=== PATIENT | female | born 1980 ===

== ENCOUNTER 2018-07-13 10:45 | Emergency (ER) | payer MEDICAID ==
[2018-07-13 11:03] VITALS: TEMP 98.5; BMI 21.9
[2018-07-13 11:52] LABS: BASO # 0.1 K/uL (0.0-0.2); BASO % 0.6 % (0.0-2.0); EOS # 0.1 K/uL (0.0-0.7); EOS % 0.6 % (0.0-4.0); HEMOGLOBIN 12.2 g/dL (12.0-16.0); LYMPH # 1.2 K/uL (1.0-4.3); LYMPH % 8.9 % (20.0-40.0); MEAN CELL VOLUME 95.6 fl (81.0-99.0); MEAN CORPUSCULAR HEMOGLOBIN 31.6 pg (27.0-31.0); MEAN CORPUSCULAR HGB CONC 33.1 g/dL (33.0-37.0); MEAN PLATELET VOLUME 9.9 fl (7.2-11.7); MONO # 1.1 K/uL (0.0-0.8); MONO % 7.7 % (0.0-10.0); NEUT # 11.4 K/uL (1.8-7.0); NEUT % 82.2 % (50.0-75.0); NRBC % 0.1 % (0.0-0.0); PLATELET COUNT 154 K/uL (130-400); RBC 3.86 Mil/uL (3.80-5.20); RED CELL DISTRIBUTION WIDTH 14.3 % (11.5-14.5); WHITE BLOOD COUNT 13.9 K/uL (4.8-10.8)
[2018-07-13 12:02] LABS: ALB/GLOB RATIO 1.1 (1.0-2.1); ALBUMIN 3.6 g/dL (3.5-5.0); ALT/SGPT 29 U/L (9-52); AST/SGOT 37 U/L (14-36); BLOOD UREA NITROGEN 7 mg/dl (7-17); CALCIUM 8.6 mg/dL (8.4-10.2); GFR NON-AFRICAN AMERICAN > 60
--- NOTE | 2018-07-13 12:03 | ED PDOC ---
HPI: Fever Time Seen by Provider: 07/13/18 11:45 Fever Onset Was: 07/10/18 The Fever Was Measured: Tympanic What Antipyretic Given Prior To Arrival: Acetaminophen (0800) Recent Sick Contacts: No Have you had recent travel within the past 21 days to any of the following countries: [place], [place], [place] or [place]?: No Does Patient Have Hx Of Febrile Seizures: No Did The Patient Have A Seizure Today: No Symptoms Associated With Fever: Other (Sore throat) Additional Comments: Pt seen and examined at bedside with attending. 37F PMH HSV asymptomatic on prophylaxis p/w 3 days of fever, Tmax-104, being treated wi th Tylenol and Ibuprofen. She denies sick contacts, ear pain, SOB, cough, palpitations, mild Nausea but denies Vomiting/diarrhea, but mild sore throat started today and experiencing some mild dysuric symptoms with cramping. Past Medical History Vital Signs: Last Vital Signs Temp 36.9 C 07/13/18 11:02 Pulse 88 07/13/18 11:02 Resp 16 07/13/18 11:02 BP 114/78 07/13/18 11:02 Pulse Ox 98 07/13/18 11:02 - Medical History PMH: Sexually Transmitted Disease (Herpes) Denies: Chronic Kidney Disease - Surgical History Surgical History: Cholecystectomy (2008) - Family History Family History: States: Unknown Family Hx - Immunization History Hx Tetanus Toxoid Vaccination: No Hx Influenza Vaccination: No Hx Pneumococcal Vaccination: No - Home Medications Home Medications: Ambulatory Orders Medication Instructions Recorded Docusate [Colace] 100 mg PO BID #30 cap 03/16/16 Hydrocortisone/Lidocaine/Aloe 1 applic TOP BID #1 kit 03/16/16 [Lidocaine-Hc 2-2% Cream Kit] traMADol [Ultram] 50 mg PO Q8 PRN #10 tab 03/16/16 Acyclovir [Zovirax] 500 mg PO DAILY 05/10/16 Docusate [Colace] 100 mg PO BID 05/10/16 oxyCODONE/Acetaminophen [Percocet 5 - 325 mg PO Q4 PRN 05/10/16 5/325 mg Tab] Ciprofloxacin [Cipro] 500 mg PO BID #14 tab 07/13/18 - Allergies Allergies/Adverse Reactions: Allergies Allergy/AdvReac Type Severity Reaction Status Date / Time No Known Allergies Allergy Verified 03/15/16 23:46 Review of Systems ROS Statement: Except As Marked, All Systems Reviewed And Found Negative Constitutional: Positive for: Fever, Chills Gastrointestinal: Positive for: Nausea. Negative for: Vomiting, Abdominal Pain Genitourinary Female: Positive for: Dysuria Physical Exam - Reviewed Vital Signs Reviewed: Yes - Physical Exam Appears: Positive for: Non-toxic, No Acute Distress Skin: Positive for: Normal Color, Warm, Dry Eye Exam: Positive for: Normal appearance ENT: Positive for: Pharyngeal Erythema Neck: Positive for: Supple Cardiovascular/Chest: Positive for: Regular Rate, Rhythm. Negative for: Murmur Respiratory: Positive for: Normal Breath Sounds. Negative for: Crackles, Wheezing Back: Positive for: R CVA Tenderness (mild) Extremity: Positive for: Normal ROM. Negative for: Swelling Lymphatic: Negative for: Adenopathy Neurologic/Psych: Positive for: Alert, Oriented - Laboratory Results Result Diagrams: 07/13/18 11:42 07/13/18 11:42 - ECG O2 Sat by Pulse Oximetry: 98 Medical Decision Making Medical Decision Making: Urine dip with blood/trace leuks not menstruating, Upreg negative. - Udip/U preg, CBC, CMP, Rapid Flu, Urinalysis - Reeval Urine dip shows blood+, Upreg negative CBC no anemia but leukocytosis with left shift CMP mild AST elevation, otherwise WNL Urinalysis blood/RBC positive - Rocephin/Toradol - Reeval Disposition - Clinical Impression Clinical Impression: Kidney infection - Patient ED Disposition Is Patient to be Admitted: No Counseled Patient/Family Regarding: Diagnosis, Need For Followup, Rx Given - Disposition Referrals: Bryant Parada MD [Family Provider] - (3-5 days) Disposition: Routine/Home Disposition Time: 14:28 Condition: IMPROVED Additional Instructions: Follow up with primary care doctor in 2-3 days Complete and take antibiotics as directed Return to the ER for worsening or persistent fevers or the development of vomiting Prescriptions: Ciprofloxacin [Cipro] 500 mg PO BID #14 tab Instructions: Kidney Infection (DC) Forms: [employer] (Khmer), [facility] ED School/Work Excuse
[2018-07-13 12:04] LABS: SQUAMOUS EPITHIAL 13 /hpf (0-5); URINE BACTERIA RARE (<OCC); URINE BILIRUBIN NEGATIVE (NEGATIVE); URINE BLOOD MODERATE (NEGATIVE); URINE CLARITY SLIGHTY-CLOUDY (Clear); URINE COLOR YELLOW (YELLOW); URINE GLUCOSE (UA) NEG (Normal); URINE LEUKOCYTE ESTERASE NEG Leu/uL (Negative); URINE PROTEIN 30 mg/dL (NEGATIVE)
[2018-07-13 12:48] LABS: BANDS 3 % (0-2); BASOPHIL 1 % (0-2); EOSINOPHIL 1 % (0-7); LYMPHOCYTE 4 % (20-50); MONOCYTE 6 % (0-10); NEUTROPHIL 85 % (42-75); PLATELET ESTIMATE NORMAL (NORMAL); TOTAL CELLS COUNTED 100
[2018-07-13] MEDS ORDERED: cefTRIAXone (Rocephin) 1 gm Inj ONE (13:33)
[2018-07-13 17:40] VITALS: BP 111/70; PULSE 74; RESP 16; O2SAT 99
== END 2018-07-13 14:40 | disposition home or self-care (01) ==
LOC: H.ER 10:45
DX: N10 Acute pyelonephritis (principal)
CPT/HCPCS: 80053; 81003; 81025; 85025; 87804; 96365; 96372; 99282; J0696; J1885

== ENCOUNTER 2018-11-28 00:26 | Emergency (ER) | payer MEDICAID ==
[2018-11-28 01:06] VITALS: BMI 23.2
[2018-11-28 01:08] VITALS: RESP 18
[2018-11-28] MEDS ORDERED: Iohexol 240 (50 ml) PO ONE (03:09)
--- NOTE | 2018-11-28 03:11 | ED PDOC ---
HPI: Abdomen Time Seen by Provider: 11/28/18 00:40 Chief Complaint (Nursing): Abdominal Pain Chief Complaint (Provider): abd pain, diffuse History Per: Patient History/Exam Limitations: no limitations Onset/Duration Of Symptoms: Days (1) Additional Complaint(s): pt complains of fever since tuesday and diarrhea today. pt complains of nausea but no vomiting. pt denies fever or chills. Past Medical History Vital Signs: Last Vital Signs Temp 98.8 F 11/28/18 01:06 Pulse 72 11/28/18 01:06 Resp 18 11/28/18 01:06 BP 105/69 11/28/18 01:06 Pulse Ox 98 11/28/18 01:06 - Medical History PMH: No Chronic Diseases, Sexually Transmitted Disease (Herpes) Denies: Chronic Kidney Disease - Surgical History Surgical History: Cholecystectomy (2008) - Family History Family History: States: Unknown Family Hx - Social History Current smoker - smoking cessation education provided: No Alcohol: None Drugs: Denies - Immunization History Hx Tetanus Toxoid Vaccination: No Hx Influenza Vaccination: No Hx Pneumococcal Vaccination: No - Home Medications Home Medications: Ambulatory Orders Medication Instructions Recorded Docusate [Colace] 100 mg PO BID #30 cap 03/16/16 Hydrocortisone/Lidocaine/Aloe 1 applic TOP BID #1 kit 03/16/16 [Lidocaine-Hc 2-2% Cream Kit] traMADol [Ultram] 50 mg PO Q8 PRN #10 tab 03/16/16 Acyclovir [Zovirax] 500 mg PO DAILY 05/10/16 Docusate [Colace] 100 mg PO BID 05/10/16 oxyCODONE/Acetaminophen [Percocet 5 - 325 mg PO Q4 PRN 05/10/16 5/325 mg Tab] Ciprofloxacin [Cipro] 500 mg PO BID #14 tab 07/13/18 Ciprofloxacin HCl [Cipro] 500 mg PO BID #20 tab 11/28/18 Metronidazole [Flagyl] 500 mg PO TID #30 tablet 11/28/18 - Allergies Allergies/Adverse Reactions: Allergies Allergy/AdvReac Type Severity Reaction Status Date / Time No Known Allergies Allergy Verified 11/28/18 01:06 Physical Exam - Reviewed Nursing Documentation Reviewed: Yes Vital Signs Reviewed: Yes - Physical Exam Appears: Positive for: Well, Non-toxic, No Acute Distress Head Exam: Positive for: ATRAUMATIC, NORMAL INSPECTION, NORMOCEPHALIC Skin: Positive for: Normal Color, Warm, DRY Eye Exam: Positive for: EOMI, Normal appearance, PERRL ENT: Positive for: Normal ENT Inspection Neck: Positive for: Normal, Painless ROM Cardiovascular/Chest: Positive for: Regular Rate, Rhythm Respiratory: Positive for: CNT, Normal Breath Sounds Gastrointestinal/Abdominal: Positive for: Normal Exam, Bowel Sounds, Soft, Tenderness (diffuse). Negative for: Guarding, Rebound Back: Positive for: Normal Inspection Extremity: Positive for: Normal ROM Neurological/Psych: Positive for: Awake, Alert, Normal Tone - Laboratory Results Result Diagrams: 11/28/18 03:55 11/28/18 03:55 - ECG O2 Sat by Pulse Oximetry: 98 Medical Decision Making Medical Decision Making: diarrhea for one day, fever -CT ap rule out coliits, diverticulitis, abscess rule out colitis labs reviewed CT ap" IMPRESSION: Uncomplicated colitis. Moderate diffuse thickening of the cecum, ascending and proximal transverse colon. Moderate amount of fecal residue in the distal colon. 630 am pt reevaluated, feels improved, tolerated po, pain improved pt stable for discharge as an outpatient Disposition - Clinical Impression Clinical Impression: Abdominal pain, Colitis - Patient ED Disposition Is Patient to be Admitted: No Counseled Patient/Family Regarding: Studies Performed, Diagnosis, Need For Followup - Disposition Referrals: Jermain Alvarez MD, PhD [Staff Provider] - Bryant Parada MD [Primary Care Provider] - Disposition: Routine/Home Disposition Time: 06:30 Condition: IMPROVED Additional Instructions: follow up with your primary doctor in 2 days for reevaluation and for referral to GI specialist or follow up with our head control clerk Gi doctor return to the ED wtih any worsening or concerning symptoms Prescriptions: Ciprofloxacin HCl [Cipro] 500 mg PO BID #20 tab Metronidazole [Flagyl] 500 mg PO TID #30 tablet Instructions: Colitis, Stomach Ache and Stomach Upset Forms: [employer] (Turkish), [facility] ED School/Work Excuse
[2018-11-28] MEDS ORDERED: Iohexol 240 (50 ml) ONE (03:43)
[2018-11-28 04:14] LABS: ALB/GLOB RATIO 1.3 (1.0-2.1); ALBUMIN 3.9 g/dL (3.5-5.0); ALT/SGPT 24 U/L (9-52); AST/SGOT 28 U/L (14-36); BLOOD UREA NITROGEN 9 mg/dl (7-17); CALCIUM 8.9 mg/dL (8.4-10.2); GFR NON-AFRICAN AMERICAN > 60
[2018-11-28 04:31] LABS: BASO # 0.1 K/uL (0.0-0.2); BASO % 0.8 % (0.0-2.0); EOS # 0.1 K/uL (0.0-0.7); EOS % 1.1 % (0.0-4.0); HEMOGLOBIN 13.4 g/dL (12.0-16.0); LYMPH # 1.4 K/uL (1.0-4.3); LYMPH % 17.6 % (20.0-40.0); MEAN CELL VOLUME 94.7 fl (81.0-99.0); MEAN CORPUSCULAR HEMOGLOBIN 32.8 pg (27.0-31.0); MEAN CORPUSCULAR HGB CONC 34.6 g/dL (33.0-37.0); MEAN PLATELET VOLUME 10.2 fl (7.2-11.7); MONO # 0.7 K/uL (0.0-0.8); NEUT # 5.9 K/uL (1.8-7.0); NEUT % 72.5 % (50.0-75.0); NRBC % 0.1 % (0.0-0.0); RBC 4.08 Mil/uL (3.80-5.20); RED CELL DISTRIBUTION WIDTH 13.8 % (11.5-14.5); WHITE BLOOD COUNT 8.2 K/uL (4.8-10.8)
[2018-11-28] MEDS ORDERED: Sodium Chloride 0.9% 50 ML IV ONE (05:16)
[2018-11-28] MEDS ORDERED: Iohexol 300 100 ML IJ ONE (05:16)
[2018-11-28 07:33] VITALS: BP 120/75; PULSE 75; TEMP 98.3
--- NOTE | 2018-11-28 11:10 | CT ---
Date of service: 11/28/2018 PROCEDURE: CT Abdomen and Pelvis with contrast HISTORY: ab dpain COMPARISON: None. TECHNIQUE: Following the intravenous administration of iodinated contrast material, a CT examination of the abdomen and pelvis was performed from the domes of the diaphragms to the symphysis pubis with reformatted datasets provided in axial, sagittal and coronal planes. Oral contrast was not administered as per referring physician request. Contrast dose: Omnipaque 300, 80 cc Radiation dose: Total exam DLP = 234.53 mGy-cm. This CT exam was performed using one or more of the following dose reduction techniques: Automated exposure control, adjustment of the mA and/or kV according to patient size, and/or use of iterative reconstruction technique. FINDINGS: LOWER THORAX: Trace bilateral basilar dependent atelectasis identified. LIVER: Unremarkable. No gross lesion or ductal dilatation. GALLBLADDER AND BILE DUCTS: Prior cholecystectomy. Likely related dilated CBD measuring 8 mm proximally and 9.5 mm at the mid segment with the distal caliber normal, under 4 mm. No radiodense choledocholithiasis appreciable. PANCREAS: Unremarkable. No gross lesion or ductal dilatation. SPLEEN: Unremarkable. ADRENALS: Unremarkable. No mass. KIDNEYS AND URETERS: Unremarkable. No hydronephrosis. No solid mass. VASCULATURE: Unremarkable. No aortic aneurysm. No aortic atherosclerotic calcification or mural plaque present. BOWEL: Evaluation of the gastrointestinal tract is limited due to the lack of oral contrast administration. No bowel obstruction appreciable. Prominent fecal loading is seen at the left hemicolon with the ascending and hepatic flexure colonic segments collapsed but thick-walled suspicious for segmental colitis from indeterminate etiology. Consider infectious or inflammatory causes with neoplasm not favored but not completely excluded. APPENDIX: No CT evidence of appendicitis. PERITONEUM: No abscess, free air or ascites grossly evident. LYMPH NODES: Unremarkable. No enlarged lymph nodes. BLADDER: Distended but thin walled urinary bladder. REPRODUCTIVE: Unremarkable. BONES: No acute fracture. OTHER FINDINGS: None. IMPRESSION: Findings most compatible with segmental colitis affecting the right hemicolon and hepatic flexure segments of an indeterminate etiology. No abscess, free air or ascites identified. Retained fecal material at the distal large bowel. 11/28/2018, 5:54 a.m..
[2018-11-29 18:02] VITALS: O2SAT 98
== END 2018-11-28 06:58 | disposition home or self-care (01) ==
LOC: H.ER 00:26
DX: R10.9 Unspecified abdominal pain (principal); K52.9 Noninfective gastroenteritis and colitis, unspecified; R18.8 Other ascites
CPT/HCPCS: 74177; 80053; 81025; 85025; 87040; 87086; 99283; Q9966; Q9967